=== PATIENT | female | born 1985 | race Caucasian/White ===

== ENCOUNTER 2017-11-25 13:36 | Outpatient (REF) | payer MEDICAID, SELFPAY ==
[2017-11-25 19:36] LABS: Bacteria Rare HPF (Negative); C & S Indicated? No; Casts Negative LPF (Negative); Crystals Negative HPF (Negative); Epithelial Cells Rare HPF (Negative); Mucus Negative (Negative); RBC 0-2 (0-2); WBC 0-2 HPF (0-5)
== END 2017-11-25 13:37 ==
LOC: NCHCN 13:36
PROVIDERS: PCP Internal Medicine; Visit Provider Physician Assistant Medical
DX: R35.0 Frequency of micturition (principal)
CPT/HCPCS: 81015

== ENCOUNTER 2018-07-08 15:33 | Outpatient (REF) | payer MEDICAID, SELFPAY ==
[2018-07-08 19:31] LABS: HCT 38.1 % (36.0-46.0); HGB 12.8 g/dL (12.0-15.5); Mean Corp. HGB Concentration 33.6 g/dL (32.0-36.0); Mean Corpuscular Hemoglobin 30.8 pg (27.0-33.0); Mean Corpuscular Volume 91.8 fL (80-95); Mean Platelet Volume 10.7 fL (8.0-11.0); Platelet Count 269 x1000/uL (130-400); RBC 4.15 m/cumm (4.00-5.20); RBC Distribution Width 13.2 % (11.7-14.6); White Blood Cell Count 11.53 k/cumm (4.4-10.8)
[2018-07-08 21:48] LABS: Hemoglobin A1C 6.3 % (4.5-6.2)
== END 2018-07-08 15:53 ==
LOC: NCHCN 15:33
PROVIDERS: PCP Internal Medicine; Visit Provider Physician Assistant Medical
DX: E16.2 Hypoglycemia, unspecified (principal); N93.8 Other specified abnormal uterine and vaginal bleeding
CPT/HCPCS: 85027; 83036